=== PATIENT | female | born 1980 | race Caucasian/White ===

== ENCOUNTER 2023-09-28 15:02 | Outpatient (CLI) | payer OTHER, SELFPAY ==
--- NOTE | ~2023-09-28 | XR_ITS ---
XR hip RT min 2V DATE: 09/28/2023 15:47 INDICATION: Chronic right hip pain. TECHNIQUE: AP and lateral views of right hip COMPARISON: None FINDINGS: There is prominent degenerative disc disease at L5-S1. The pubic symphysis and right sacroiliac joint are normally aligned. Right hip joint space appears well preserved. No fracture, dislocation, avascular necrosis or bone de struction is detected. IMPRESSION: No significant abnormality right hip Prominent degenerative disc disease at L5-S1 Reviewed, dictated and finalized at location B.
== END 2023-09-28 15:03 | disposition home or self-care (01) ==
LOC: ANHIMG 15:18
PROVIDERS: Visit Provider Chiropractor
DX: M51.37 Other intervertebral disc degeneration, lumbosacral region (principal); G89.29 Other chronic pain; M25.551 Pain in right hip
CPT/HCPCS: 73502

== ENCOUNTER 2024-08-29 14:14 | Outpatient (CLI) | payer SELFPAY ==
--- NOTE | ~2024-08-29 | US_ITS ---
Pelvic ultrasound. Clinical History: Pelvic pain Technique: Realtime transabdominal and transvaginal scanning of the pelvis was performed. Color flow Doppler and Doppler spectral analysis were performed. Findings: The uterus is anteverted. The endometrial stripe has a thickness of 13 mm. There is an ant erior intramural fibroid measuring up to 3.1 cm in diameter. The right ovary measures 2.4 x 2.8 x 3.1 cm. No significant right ovarian or adnexal mass is seen. The left ovary measures 3.1 x 3.5 x 3.3 cm. No significant left ovarian or adnexal mass is seen. There is no evidence of free fluid in the cul de sac. Impression: Uterine fibroid, as detailed above. Reviewed, dictated and finalized at location . Impression: Uterine fibroid, as detailed above.
== END 2024-08-29 14:15 | disposition home or self-care (01) ==
DX: D25.1 Intramural leiomyoma of uterus (principal)
CPT/HCPCS: 76830; 76856